=== PATIENT | male | born 1995 ===

== ENCOUNTER 2016-09-09 11:37 | Emergency (ER) | payer OTHER ==
[2016-09-09 12:32] VITALS: BP 134/75
--- NOTE | 2016-09-09 12:47 | UC ---
Lower Extremity/Ankle HPI - HPI Summary HPI Summary: Last night playing flag foot ball he fell to the ground during the beginning of a play---immediate pain in right achellies tendon---has no strength in foot - History of Current Complaint Chief Complaint: UCLowerExtremity Stated Complaint: RIGHT LEG INJURY Time Seen by Provider: 09/09/16 12:35 Hx Obtained From: Patient Onset/Duration: Sudden Onset, Lasting Days - 1, Still Present Severity Initially: Moderate Severity Currently: Mild Pain Intensity: 1 - refused pain med Aggravating Factor(s): Standing, Ambulation Alleviating Factor(s): Rest, Elevation Able to Bear Weight: Yes - with pain - Allergies/Home Medications Allergies/Adverse Reactions: Allergies Allergy/AdvReac Type Severity Reaction Status Date / Time No Known Allergies Allergy Verified 09/09/16 12:26 Home Medications: Home Medications Ibuprofen TAB* [Advil TAB*] 400 mg PO Q6H PRN 09/09/16 [History Confirmed ] Loratadine [Claritin 10 MG CAP] 10 mg PO DAILY 09/09/16 [History Confirmed 09/09] PMH/Surg Hx/FS Hx/Imm Hx Previously Healthy: Yes - Surgical History Surgical History: None - Family History Known Family History: Positive: None Family History: No reported cardio vascular issues in family lineage - Social History Occupation: Student Lives: With Family Alcohol Use: Rare Substance Use Type: None Smoking Status (MU): Never Smoked Tobacco Review of Systems Constitutional: Negative Skin: Negative Eyes: Negative ENT: Negative Respiratory: Negative Cardiovascular: Negative Gastrointestinal: Negative Genitourinary: Negative Motor: Negative Neurovascular: Negative Musculoskeletal: Arthralgia - left heel Neurological: Negative Psychological: Negative All Other Systems Reviewed And Are Negative: Yes Physical Exam Triage Information Reviewed: Yes Appearance: Well-Appearing, No Pain Distress, Well-Nourished Vital Signs: Initial Vital Signs Temp 98.4 F 09/09/16 12:27 Pulse 73 09/09/16 12:27 Resp 16 09/09/16 12:27 BP 134/75 09/09/16 12:27 Pulse Ox 100 09/09/16 12:27 Vital Signs Reviewed: Yes Eye Exam: Normal Eyes: Positive: Conjunctiva Clear ENT Exam: Normal ENT: Positive: Normal ENT inspection, Hearing grossly normal, Pharynx normal. Negative: Nasal congestion, Nasal drainage, TMs normal, Tonsillar swelling, Tonsillar exudate, Trismus, Muffled/hoarse voice Dental Exam: Normal Neck exam: Normal Neck: Positive: Supple, Nontender Respiratory Exam: Normal Respiratory: Positive: No respiratory distress, No accessory muscle use Cardiovascular Exam: Normal Cardiovascular: Positive: RRR, Pulses Normal, Brisk Capillary Refill Musculoskeletal Exam: Other Musculoskeletal: Positive: Strength Intact - right foot, ROM Limited @ - Payne squeeze test---no foot movement, Other: - tender right achellies tendon Neurological Exam: Normal Neurological: Positive: Alert, Muscle Tone Normal Psychological Exam: Normal Skin Exam: Normal Diagnostics - Laboratory Diagnostic Studies Completed/Ordered: no bone injury Lower Extremity Course/Dx - Course Course Of Treatment: sahil, gel, crutches, non-weightbearing, ice, ibuprofen, follow with ortho 1-2 days - Differential Dx/Diagnosis Differential Diagnosis/HQI/PQRI: Fracture (Closed), Sprain, Strain, Tendonitis Provider Diagnoses: Achellies Tendon Injury _Right__ Discharge - Discharge Plan Condition: Stable Disposition: HOME Patient Education Materials: Achilles Tendon Rupture (ED), RICE Therapy (ED), Crutch Instructions (ED), Non Weight Bearing Activity (ED), Ibuprofen (By mouth) Referrals: Juan Daniel Jacobson MD [Medical Doctor] - 2 Days
--- NOTE | 2016-09-09 13:13 | RAD ---
HISTORY: Possible Achilles avulsion injury, right ankle COMPARISONS: None VIEWS: 3, Frontal, lateral, and oblique views of the right ankle FINDINGS: BONE DENSITY: Normal. BONES: There is no displaced fracture. JOINTS: There is no arthropathy. ALIGNMENT: There is no dislocation. SOFT TISSUES: Unremarkable. OTHER FINDINGS: None. IMPRESSION: NO ACUTE OSSEOUS INJURY. IF SYMPTOMS PERSIST, RECOMMEND REPEAT IMAGING.
== END 2016-09-09 13:45 | disposition home or self-care (01) ==
LOC: UCCORT 11:37
DX: S86.001A Unspecified injury of right Achilles tendon, initial encounter (principal); W18.30XA Fall on same level, unspecified, initial encounter; Y93.62 Activity, american flag or touch football; Y92.9 Unspecified place or not applicable
CPT/HCPCS: 99203; G0463